=== PATIENT | female | born 1955 | race Caucasian/White ===

== ENCOUNTER 2018-09-08 20:42 | Inpatient (IN) | payer OTHER, MEDICAID ==
[~2018-09-08] VITALS: Ht 152.4 cm; Wt 55.3 kg
[2018-09-08] MEDS ORDERED: KETOROLAC 30MG/ML VIAL IV STA (21:37)
[2018-09-08] MEDS ORDERED: SODIUM CHLORIDE 0.9% 1,000 ML IV ONE (21:37)
[2018-09-08] MEDS ORDERED: INSULIN REGULAR (HUMULIN R) UD 100 UNITS/ML SYR SUBCUT ONE (22:00)
[2018-09-08 22:02] LABS: HEMATOCRIT. 31.2 % (36.0-48.0); HEMOGLOBIN. 10.7 g/dL (12.0-16.0); MEAN CORPUSCULAR HEMOGLOBIN 29.4 pg (28.0-32.0); MEAN CORPUSCULAR VOLUME 85.6 fL (81.0-99.0); MEAN PLATELET VOLUME 7.9 fl (7.4-10.4); RED BLOOD CELL COUNT 3.65 mill/uL (4.2-5.4); RED CELL DISTRIBUTION WIDTH 16.4 % (11.6-14.6)
[2018-09-08 22:04] LABS: CHLORIDE 104 mEq/L (98-107)
[2018-09-08 22:08] LABS: PLATELET 40 x1000/uL (130-400)
[2018-09-08 22:26] LABS: D-DIMER 0.31 mg/L FEU (<0.50); INR 1.2; PARTIAL THROMBOPLASTIN TIME 28.7 sec (23.4-31.0)
[2018-09-08 22:30] LABS: PLATELET ESTIMATE MARKEDLY DECREASED
[2018-09-09 01:03] LABS: CLARITY URINE CLOUDY (CLEAR); COLOR URINE YELLOW (YELLOW); KETONES URINE NEGATIVE (NEGATIVE); LEUKOCYTE ESTERASE URINE 2+ (NEGATIVE); NITRITE URINE NEGATIVE (NEGATIVE); OCCULT BLOOD URINE NEGATIVE (NEGATIVE); PROTEIN URINE NEGATIVE (NEGATIVE); SPECIFIC GRAVITY URINE 1.031 (1.005-1.030); UROBILINOGEN URINE 0.2 E.U./dL (0.2-1.0)
[2018-09-09] MEDS ORDERED: CEFTRIAXONE 1 G PREMIX 50 ML IV ONE (02:00)
[2018-09-09 04:00] VITALS: BP 111/53
[2018-09-09] MEDS ORDERED: FERR324T4 PO (05:08)
[2018-09-09] MEDS ORDERED: PANT40TA4 PO (05:08)
[2018-09-09 05:13] VITALS: BP 111/53
[2018-09-09] MEDS ORDERED: HYDROCODONE/ACETAMINOPHEN 10/325MG TABLET PO PRN (06:45)
[2018-09-09] MEDS ORDERED: MORPHINE SULFATE 2 MG/ML CPJ (NOT FOR IM USE) IV PRN (06:45)
[2018-09-09] MEDS ORDERED: HYDRALAZINE 20MG/ML VIAL IV PRN (06:45)
[2018-09-09] MEDS ORDERED: MAGNESIUM/ALUMINUM HYDROXIDE/SIMETHICONE 30ML UDC PO PRN (06:45)
[2018-09-09] MEDS ORDERED: CLONIDINE 0.1MG TABLET PO PRN (06:45)
[2018-09-09] MEDS ORDERED: IPRATROPIUM/ALBUTEROL 0.5-3(2.5)MG/3ML NEB INH PRN (06:45)
[2018-09-09] MEDS ORDERED: DEXTROSE 50% WATER 50ML SYRINGE IV PRN (06:45)
[2018-09-09] MEDS ORDERED: DIPHENHYDRAMINE 50MG/ML VIAL IV PRN (06:45)
[2018-09-09] MEDS ORDERED: LORAZEPAM 2MG/ML CPJ IV PRN (06:45)
[2018-09-09] MEDS ORDERED: CEFTRIAXONE 1 G PREMIX 50 ML IV SCH (06:45)
[2018-09-09] MEDS ORDERED: DOCUSATE SODIUM 100MG CAPSULE PO PRN (06:45)
[2018-09-09] MEDS ORDERED: ACETAMINOPHEN 325MG TABLET PO PRN (06:45)
[2018-09-09] MEDS ORDERED: ONDANSETRON HCL 4MG/2ML INJ IV PRN (06:45)
[2018-09-09] MEDS ORDERED: GUAIFENESIN 200MG/10ML SUGAR FREE UDC PO PRN (06:45)
[2018-09-09] MEDS ORDERED: MORPHINE SULFATE 4 MG/ML CPJ (NOT FOR IM USE) IV PRN (07:00)
[2018-09-09] MEDS: INSULIN LISPRO 100 UNITS/ML SUBCUT SCH ×4 (07:50→21:06)
[2018-09-09] MEDS: BLOOD SUGAR DIAGNOSTIC STRIP TEST SCH ×4 (07:51→20:31)
[2018-09-09 08:00] VITALS: BP 90/48
[2018-09-09 12:00] VITALS: BP 98/53
[2018-09-09] MEDS: SODIUM CHLORIDE 0.9% INJ 3ML FLUSH IVF SCH ×2 (14:00→21:07)
[2018-09-09] MEDS ORDERED: METF500T MT (15:52)
[2018-09-09] MEDS ORDERED: SPIR50TA5 MT (15:52)
[2018-09-09] MEDS ORDERED: INSU100I24 SQ (15:52)
[2018-09-09] MEDS ORDERED: GLEC1TAB MT (15:52)
[2018-09-09 16:00] VITALS: BP 101/52
[2018-09-09 17:25] LABS: CREATINE KINASE 62 IU/L (26-192)
[2018-09-09 17:27] LABS: CREATINE KINASE MB FRACTION < 1.0 ng/mL (0.5-3.6)
[2018-09-09 20:00] VITALS: BP 98/51
[2018-09-10] VITALS: BP 101/49
[2018-09-10] MEDS ORDERED: CEFTRIAXONE 1 G PREMIX 50 ML IV SCH (02:30)
[2018-09-10 04:00] VITALS: BP 103/50
[2018-09-10] MEDS: SODIUM CHLORIDE 0.9% INJ 3ML FLUSH IVF SCH (06:00)
[2018-09-10] MEDS: BLOOD SUGAR DIAGNOSTIC STRIP TEST SCH ×2 (06:24→12:35)
[2018-09-10 06:37] LABS: HEMATOCRIT. 29.1 % (36.0-48.0); HEMOGLOBIN. 10.3 g/dL (12.0-16.0); MEAN CORPUSCULAR HEMOGLOBIN 29.7 pg (28.0-32.0); MEAN CORPUSCULAR VOLUME 83.5 fL (81.0-99.0); MEAN PLATELET VOLUME 7.8 fl (7.4-10.4); RED BLOOD CELL COUNT 3.48 mill/uL (4.2-5.4); RED CELL DISTRIBUTION WIDTH 16.7 % (11.6-14.6)
[2018-09-10 06:45] LABS: PLATELET 41 x1000/uL (130-400)
[2018-09-10 07:09] LABS: HEPATITIS B SURFACE ANTIGEN NEGATIVE
[2018-09-10 07:38] LABS: HEPATITIS A AB IGM NEGATIVE (NEGATIVE)
[2018-09-10 07:45] LABS: CHLORIDE 105 mEq/L (98-107)
[2018-09-10 07:59] VITALS: BP 126/69
[2018-09-10 08:03] LABS: CREATINE KINASE 50 IU/L (26-192)
[2018-09-10 08:12] LABS: CREATINE KINASE MB FRACTION < 1.0 ng/mL (0.5-3.6)
[2018-09-10 08:23] LABS: PLATELET ESTIMATE MARKEDLY DECREASED
[2018-09-10] MEDS: INSULIN LISPRO 100 UNITS/ML SUBCUT SCH ×2 (08:31→12:45)
[2018-09-10 12:58] VITALS: BP 109/46
[2018-09-10] MEDS ORDERED: LEVO500T2 MT (14:02)
[2018-09-10 14:03] VITALS: BP 109/46
[2018-09-11 05:29] LABS: HIV SCREEN 4G Non Reactive (Non Reactive)
== END 2018-09-10 14:47 | disposition home or self-care (01) | DRG 463 ==
LOC: ER 20:42 → 6WST 09-09 01:58 → ENRESERV 09-09 03:42
PROVIDERS: ADMIT Internal Medicine; ATTEND Internal Medicine
DX: N39.0 Urinary tract infection, site not specified (principal); D61.818 Other pancytopenia; K76.6 Portal hypertension; E11.65 Type 2 diabetes mellitus with hyperglycemia; K74.60 Unspecified cirrhosis of liver; K86.89 Other specified diseases of pancreas; F41.9 Anxiety disorder, unspecified; K43.9 Ventral hernia without obstruction or gangrene; B19.20 Unspecified viral hepatitis C without hepatic coma; Z79.899 Other long term (current) drug therapy
CPT/HCPCS: 36415; 71045; 74176; 82550; 82553; 82962; 83880; 84484; 85379; 86705; 86709; 86803; 87077; 87186; 87340; 87389; 93005; 93970; 96361; 96365; 96372; 96375; 99291; J0696; J1815; J1885; J7030; J7040